=== PATIENT | male | born 1980 | race Caucasian/White ===

== ENCOUNTER 2017-07-21 22:53 | Inpatient (IN) | payer BC, OTHER ==
[~2017-07-21] VITALS: Ht 180.3 cm; Wt 69.5 kg
[~2017-07-21 22:53] MED LIST: ATARAX25 MG PO; BENADRYL25 M1 PO; BENADRYL50 MG PO; EPI EZ PEN0.5 MG/ML IM; HYDROCODONE BIT1 T11 PO; KEFLEX500 MG PO; LIDEX0.05% T; MEDROL DOSEPAK4 MG PO; MOTRIN800 MG PO; Motrin,Rufen800 MG PO; NAPROSYN500 MG PO; NKHM; PREDNICOT20 MG PO
[2017-07-21 23:02] VITALS: BP 135/83
[2017-07-21 23:35] LABS: BASO % 0.5 % (0.0-1.0); EOS # 0.1 10*3/uL (0.0-0.4); EOS % 1.9 % (1.0-4.0); HEMATOCRIT 47.1 % (42.0-52.0); HEMOGLOBIN 15.9 g/dl (14.0-18.0); LYMPH # 2.4 10*3/uL (1.3-4.4); LYMPH % 31.5 % (27.0-41.0); MEAN CELL VOLUME 100.9 fl (80.0-94.0); MEAN CORPUSCULAR HGB CONC 33.8 g/dl (33.0-37.0); MEAN PLATELET VOLUME 10.6 fl (9.6-12.3); MONO # 0.5 10*3/uL (0.1-1.0); MONO % 6.8 % (3.0-9.0); NEUT # 4.4 10*3/uL (2.3-7.9); PLATELET COUNT AUTOMATED 309 10*3/uL (130-400); RED BLOOD COUNT 4.67 10*6/uL (4.50-5.90); RED CELL DISTRI WIDTH 11.7 % (0-14.5); WHITE BLOOD COUNT 7.5 10*3/uL (4.8-10.8)
[2017-07-21 23:43] VITALS: BP 114/90
[2017-07-21 23:46] LABS: URINE AMPHETAMINES < 1000 (1000ng/ml); URINE BARBITURATES < 200 (200ng/ml); URINE BENZODIAZEPINES < 200 (200ng/ml); URINE CANNABINOIDS (THC) < 50 (50ng/ml); URINE COCAINE < 300 (300ng/ml); URINE METHADONE < 300 (300ng/ml); URINE OPIATES < 300 (300ng/ml)
[2017-07-21 23:47] LABS: URINE PHENCYCLIDINE < 25 (25ng/ml)
[2017-07-21 23:48] LABS: ACT PARTIAL THROMBO TIME 25.1 SECONDS (20.8-31.5); INTERNATIONAL NORM RATIO 0.9 (2.0-3.5)
[2017-07-21 23:54] LABS: ALBUMIN 3.9 gm/dl (3.1-4.5); ALKALINE PHOSPHATASE 78 U/L (45-117); BUN 13 mg/dl (7-24); CHLORIDE 106 mmol/L (98-107); CREATININE 1.11 mg/dL (0.70-1.30); POTASSIUM 4.1 mmol/L (3.5-5.1); SGOT/AST 13 IU/L (3-35); SGPT/ALT 16 U/L (12-78); SODIUM 142 mmol/L (136-145); TOTAL PROTEIN 7.3 gm/dL (6.4-8.2)
[2017-07-22 00:07] LABS: TROPONIN I < 0.015 ng/ml (<0.045)
[2017-07-22 02:28] VITALS: BP 112/75
[2017-07-22 03:10] VITALS: BP 135/87
[2017-07-22 03:16] VITALS: BP 135/87
[2017-07-22 05:45] LABS: PHOSPHOROUS 3.4 mg/dL (2.5-4.9)
[2017-07-22 05:50] LABS: THYROID STIM HORMONE (HS) 0.545 uIU/ml (0.358-4.75)
[2017-07-22 08:41] VITALS: BP 120/65
[2017-07-22 09:14] LABS: VITAMIN D, 25-HYDROXY 16.6 ng/mL (30-100)
== END 2017-07-22 11:07 | disposition left against medical advice (07) | DRG 313 ==
LOC: ED 22:53 → EDHOLD 07-22 02:19 → 5E 07-22 02:28
PROVIDERS: Emergency Medicine Emergency Medical Services; Student in an Organized Health Care Education/Training Program
DX: R07.89 Other chest pain (principal); E83.41 Hypermagnesemia; D75.89 Other specified diseases of blood and blood-forming organs; R73.9 Hyperglycemia, unspecified; F17.200 Nicotine dependence, unspecified, uncomplicated; Z88.5 Allergy status to narcotic agent; Z79.899 Other long term (current) drug therapy; Z80.9 Family history of malignant neoplasm, unspecified; Z71.6 Tobacco abuse counseling

== ENCOUNTER 2025-01-18 13:19 | Emergency (ER) | payer OTHER ==
[~2025-01-18] VITALS: Ht 180.3 cm; Wt 79.4 kg
[2025-01-18] MEDS ORDERED: BUPRENORPHINE-1 EAC2 SL (13:27)
[2025-01-18] MEDS ORDERED: IOHEXOL 300 MG/ML 100 ML VIAL IV ONE (14:00)
[2025-01-18 14:06] LABS: BASO # 0.0 10*3/uL (0.0-0.1); BASO % 0.3 % (0.0-1.0); EOS # 0.1 10*3/uL (0.0-0.4); EOS % 1.0 % (1.0-4.0); MEAN CELL VOLUME 96.9 fl (80.0-94.0); MEAN CORPUSCULAR HGB 31.6 pg (27.0-31.0); MEAN PLATELET VOLUME 10.4 fl (9.6-12.3); MONO # 0.5 10*3/uL (0.1-1.0); MONO % 4.3 % (3.0-9.0); NEUT # 10.7 10*3/uL (2.3-7.9); NEUT % 89.7 % (47.0-73.0); NUCLEATED RED BLOOD CELL 0.0 % (0.0-0.0); NUCLEATED RED BLOOD CELL 0.0 10*3/uL (0.0-0.0); PLATELET COUNT AUTOMATED 276 10*3/uL (130-400); RED CELL DISTRI WIDTH 12.0 % (0-14.5)
[2025-01-18] MEDS ORDERED: Metoclopramide Hydrochloride 10 MG/2 ML VIAL IV ONE (14:35)
[2025-01-18] MEDS ORDERED: diphenhydrAMINE hydrochloride 50 MG/ML VIAL IV ONE (14:35)
[2025-01-18] MEDS ORDERED: SODIUM CHLORIDE 0.9% 1,000 ML IV ONE (14:35)
[2025-01-18 14:46] LABS: BUN 13 mg/dl (9-23); SGPT/ALT 12 U/L (5-49)
[2025-01-18 14:48] LABS: ETHYL ALCOHOL < 3.0 mg/dl (<3)
== END 2025-01-18 14:36 | disposition left against medical advice (07) ==
LOC: ED 13:19
PROVIDERS: Internal Medicine
DX: R07.89 Other chest pain (principal); F11.10 Opioid abuse, uncomplicated; F17.200 Nicotine dependence, unspecified, uncomplicated; Z53.29 Procedure and treatment not carried out because of patient's decision for other reasons; Z88.5 Allergy status to narcotic agent

== ENCOUNTER → 2025-02-22 | Outpatient (CLI) | payer OTHER ==
[~2025-02-22] MED LIST changes: +BUPRENORPHINE-1 EAC2 SL
[2025-02-22 17:55] LABS: BASO # 0.0 10*3/uL (0.0-0.1); BASO % 0.5 % (0.0-1.0); EOS # 0.1 10*3/uL (0.0-0.4); EOS % 1.1 % (1.0-4.0); MEAN CELL VOLUME 98.7 fl (80.0-94.0); MEAN CORPUSCULAR HGB 31.8 pg (27.0-31.0); MEAN PLATELET VOLUME 10.7 fl (9.6-12.3); MONO # 0.5 10*3/uL (0.1-1.0); MONO % 6.1 % (3.0-9.0); NEUT # 5.8 10*3/uL (2.3-7.9); NEUT % 70.5 % (47.0-73.0); NUCLEATED RED BLOOD CELL 0.0 % (0.0-0.0); NUCLEATED RED BLOOD CELL 0.0 10*3/uL (0.0-0.0); PLATELET COUNT AUTOMATED 392 10*3/uL (130-400); RED CELL DISTRI WIDTH 12.6 % (0-14.5)
[2025-02-22 18:08] LABS: BUN 10 mg/dl (9-23); SGPT/ALT 7 U/L (5-49)
== END | disposition home or self-care (01) ==
LOC: LAB 17:35
PROVIDERS: ATTEND Nurse Practitioner Family
DX: R11.2 Nausea with vomiting, unspecified (principal); R63.4 Abnormal weight loss

== ENCOUNTER → 2025-03-18 | Outpatient (CLI) | payer OTHER | END | disposition home or self-care (01) | LOC: US 01:48 | PROVIDERS: ATTEND Nurse Practitioner Family | DX: K76.0 Fatty (change of) liver, not elsewhere classified (principal); K80.20 Calculus of gallbladder without cholecystitis without obstruction; D18.09 Hemangioma of other sites; R10.9 Unspecified abdominal pain; J90 Pleural effusion, not elsewhere classified ==

== ENCOUNTER → 2025-03-19 | Outpatient (CLI) | payer OTHER | END | disposition home or self-care (01) | LOC: RAD 09:09 | PROVIDERS: ATTEND Nurse Practitioner Family | DX: J90 Pleural effusion, not elsewhere classified (principal) ==

== ENCOUNTER → 2025-03-26 | Outpatient (CLI) | payer OTHER ==
[2025-03-26 09:34] LABS: LDL CHOLESTEROL 103.0 mg/dL (9-159)
[2025-03-26 09:46] LABS: VITAMIN D, 25-HYDROXY 63.6 ng/mL (30-100)
== END | disposition home or self-care (01) ==
LOC: LAB 08:33
PROVIDERS: ATTEND Nurse Practitioner Family
DX: Z12.5 Encounter for screening for malignant neoplasm of prostate (principal); Z13.0 Encounter for screening for diseases of the blood and blood-forming organs and certain disorders involving the immune mechanism; Z13.1 Encounter for screening for diabetes mellitus; Z13.220 Encounter for screening for lipoid disorders